=== PATIENT | female | born 1990 | race Caucasian/White ===

== ENCOUNTER 2019-02-13 19:32 | Inpatient (IN) | payer OTHER ==
[~2019-02-13 19:32] MED LIST: Lidocaine 1% PF 5 ML VIAL ONE; PROPOFOL 200 MG/20 ML VIAL ONE
[2019-02-13 20:11] LABS: Bilirubin Negative (Negative); Blood, Urine Large (Negative); Clarity Cloudy (Clear); Glucose, Urine (Dipstick) Negative (Negative); Leukocyte Small (Negative); Nitrite Negative (Negative); Protein, Urine (Dipstick) 100 mg/dL (Neg-Trace); Specific Gravity, Urine 1.025 (1.005-1.030); Urobilinogen 0.2 mg/dL (0.2-1.0); pH, Urine 5.5 (5.0-9.0)
[2019-02-13 20:13] LABS: #Basophils 0.1 thou/uL (0.0-0.2); #Eosinphils 0.1 thou/uL (0.0-0.7); #Lymphocytes 2.5 thou/uL (1.20-3.40); #Neutrophils 11.5 thou/uL (1.40-6.50); %Basophils 0.6 % (0.0-1.0); %Eosinophils 0.5 % (0.0-10.0); %Lymphocytes 16.6 % (21.0-51.0); %Monocytes 6.6 % (0.0-10.0); %Neutrophils 75.6 % (42.0-75.0); Hemoglobin 12.6 g/dL (12.0-16.0); Mean Corpuscular Hemoglobin 29.8 pg (27.0-31.0); Mean Corpuscular Volume 90.5 fL (78.0-98.0); Mean Platelet Volume 7.1 fL (7.4-10.4); Platelet Count 364 thou/uL (130-400); RBC Distribution Width 11.9 % (11.5-14.5); Red Blood Cell (RBC) Count 4.22 mill/uL (4.20-5.40); White Blood Cell (WBC) Count 15.2 thou/uL (4.8-10.8)
[2019-02-13 20:13] LABS: Pregnancy Test - Urine (BHCG) Negative (Negative); Pregu Control Background? CLEAR/WHITE (CLR/WHITE); Pregu Control Bar Appear? YES (CONTROL BAR); Specific Gravity 1.025 (1.002-1.036)
[2019-02-13 20:20] LABS: Bacteria/HPF 2+ HPF (None Seen); Crystals/HPF 3+ CA OXALATE HPF (Negative); Hyaline Casts/LPF NONE SEEN LPF (0-3 Hyaline); RBC/HPF GREATER THAN 50-TNTC HPF (0-3); WBC/HPF 21-50 HPF (0-3)
[2019-02-13 20:23] LABS: ALT (SGPT) 16 U/L (8-55); AST (SGOT) 18 U/L (5-34); Albumin 4.1 g/dL (3.5-5.0); Alkaline Phosphatase 116 U/L (40-150); Anion Gap 13 mmol/L (10-20); BUN (Urea Nitrogen) 19 mg/dL (7.0-18.7); Bilirubin, Total 0.4 mg/dL (0.2-1.2); Calc. Creatinine Clearance 0 mL/min (70-130); Calcium 9.8 mg/dL (7.8-10.44); Carbon Dioxide 26 mmol/L (22-29); Chloride 103 mmol/L (98-107); Estimated GFR-MDRD 51; Globulin 3.3 g/dL (2.4-3.5); Glucose 86 mg/dL (70-105); Lipase 7 U/L (8-78); Potassium 4.3 mmol/L (3.5-5.1); Protein, Total 7.4 g/dL (6.0-8.3); Sodium 138 mmol/L (136-145)
--- NOTE | 2019-02-13 20:48 | CT ---
CT Stone Protocol History: [Urinary frequency and pain] Comparison: None. Findings: Lung bases are clear. No pericardial effusion. Moderate left-sided hydroureteronephrosis du e to a 2 x 3 mm calculus at the left ureterovesicular junction, on the bladder side of the junction. No other left renal collecting system calculus is appreciated. There is a 3 x 3 mm calculus interpolar right kidney. No right-sided hydroureteronephrosis. No dilated loops of large small bowel. Small volume free fluid within the pelvis. The appendix is vis ualized and is normal. Skeleton is unremarkable. Liver, gallbladder, spleen are unremarkable. The aortoiliac contour is zonia neurysmal. Impression: 1. Left hydroureteronephrosis, moderate, due to a partially obstructing calculus left ureterovesicula r junction, on the bladder side of the junction, measuring 2 x 3 mm. 2. 3 x 3 mm calculus right interpolar renal collecting system. No right-sided hydroureteronephrosis.
[2019-02-13] MEDS ORDERED: Fentanyl 100 MCG/2 ML VIAL ONE ×3 (21:14→23:51)
[2019-02-13] MEDS ORDERED: cefTRIAXone\\ROCEPHIN 2 GM VIAL ONE (21:14)
[2019-02-13] MEDS ORDERED: Iothalamate Meglumine 60% 50 ML VIAL FS ONE (21:15)
[2019-02-13] MEDS ORDERED: Sodium Chloride 0.9% 100 ML ONE (21:15)
[2019-02-13] MEDS ORDERED: Meperidine HCl/PF 25 MG/ML VIAL SLOW IVP PRN (23:22)
[2019-02-13] MEDS ORDERED: HYDROmorphone 2 MG/ML VIAL SLOW IVP PRN (23:22)
[2019-02-13] MEDS ORDERED: Ondansetron HCl/PF 4 MG/2 ML Vial IVP PRN (23:22)
[2019-02-13] MEDS ORDERED: Promethazine HCl 25 MG/ML VIAL IM PRN (23:22)
[2019-02-13] MEDS ORDERED: Ketorolac Tromethamine 30 MG/ML VIAL IVP PRN (23:22)
[2019-02-13] MEDS ORDERED: Promethazine HCl 25 MG/ML VIAL SLOW IVP PRN (23:22)
--- NOTE | 2019-02-13 23:22 | RAD ---
XR IVP Retrograde History: [Stone] Comparison: CT abdomen and pelvis stone protocol same day Findings: Small filling defect is seen at the left ureterovesicular junction. Mild dilatation left ur eter and collecting system. On the final image a stent is in place. Impression: Fluoroscopy for surgical use.
[2019-02-13] MEDS ORDERED: Meperidine HCl/PF 25 MG/ML VIAL ONE (23:37)
[2019-02-13] MEDS ORDERED: Ondansetron PF 4 MG/2 ML Vial ONE (23:58)
[2019-02-14] MEDS ORDERED: Ondansetron PF 4 MG/2 ML Vial IVP PRN (01:21)
--- NOTE | 2019-02-14 01:33 | OP ---
DATE OF PROCEDURE: 02/13/2019 PREOPERATIVE DIAGNOSES: Left ureteral stone, left pyelonephritis. POSTOPERATIVE DIAGNOSES: Left ureteral stone, left pyelonephritis. PROCEDURE PERFORMED: Cysto, left stent. ANESTHETIC: General. ESTIMATED BLOOD LOSS: Minimal. DRAINS: 6 x 22 [place] with a string attached. FINDINGS: There is a distal left ureteral stone. We placed a wire, bite it and broke up into some pieces, some of which passed and a lot of debris passed behind it. When the procedure was done, still looked like a small stone fragment inside the intramural ureter, so I do not think she has completely passed the stone, but I do think she has passed some of it. She did have some left hydro. She did have some cloudy urine in the bladder. She did have some cloudy urine from the left kidney. DESCRIPTION OF PROCEDURE: After obtaining written and verbal consent from the patient after having received IV antibiotics with vancomycin and Rocephin and after having signed her consent forms and had all her questions answered, she was taken to the operating suite. She was placed in a supine position on the treatment table. PlexiPulses were placed on lower extremities and turned on. She was given a general anesthetic and oral obturator intubation. She was placed in the dorsal lithotomy position. She was sterilely prepped and draped. Cystoscopy was performed with a 22-Bruneian sheath. This was well lubricated. It was passed with a 30-degree lens through the urethra and into the urinary bladder with video camera and monitor. The bladder was filled and emptied number of times. A 0.038 guidewire was set up the left side and went by the stone. The stone fragmented into some pieces and debris came out from the left ureteral orifice. A 5-Bruneian [place] catheter was advanced over the guidewire. About 8 mL of contrast were placed to fill up the collecting system, which was mildly hydronephrotic. The guidewires were placed and an open-ended catheter was removed and the stent 6 x 23 was passed over the guidewire and pushed up to place a pusher, so its proximal end coiled in the renal pelvis and its distal end coiled in the bladder. The bladder was drained. The instruments were removed. The string was left attached to the stent and was cut shorter. She was taken out of the dorsal lithotomy position, awakened, extubated, and taken by stretcher to the recovery room. Keo ID: [id number]
--- NOTE | 2019-02-14 01:42 | CON ---
DATE OF CONSULTATION: 02/13/2019 HISTORY OF PRESENT ILLNESS: This is a 29-year-old white female, who five days ago began having left flank pain and some urinary frequency, urgency and dysuria. She started having some subjective chills and fever. She gets sick enough that she came into the emergency room today because of this. She was found to be tachycardic. She had no elevated temperature. She had a white count that was elevated at 15.2, hemoglobin was normal at 12.6, and her platelet count was normal at 364. She had a negative test. Her urinalysis showed many white cells, greater than 50 red cells, and 2+ bacteria. Her liver function tests were normal. Creatinine is 1.26. Her potassium is 4.3, chloride 103, and CO2 was 26. Blood and urine cultures done. She received Rocephin and vancomycin in the [facility]. Noncontrast CT scan was done. The CT scan showed small 3 mm left distal ureteral stone with left hydronephrosis and also a small right renal stone that did not appear to be causing any obstruction. PAST MEDICAL HISTORY: She has had one child. She has history of ovarian cysts. She has had tubes placed in her ears. She has ADHD and she has history of anxiety. ALLERGIES: SHE HAS AN ALLERGY TO PENICILLIN AND SHE HAS SOME REACTION TO MORPHINE, WHICH CAUSES HER TO BECOME ANGRY. SOCIAL HISTORY: She currently does not smoke, but has in the past. She does not drink alcohol. MEDICATIONS: She normally takes medicine for ADHD, which she cannot remember the name of. She takes meloxicam for some type of carpal tunnel in her right hand. She takes Lexapro for anxiety and depression. PHYSICAL EXAMINATION: She has some left CVA tenderness. Abdomen is soft and nontender. IMPRESSION: Urinary tract infection, probable left pyelonephritis and obstructing left distal ureteral stone. The plan is for cysto left stent placement. Discussed this with the patient, so she understands that procedure, will not be getting the stone out, but just relieving the obstruction to the kidney and letting the infection of the urine drain. She is a patient of Dr. Raina Zhang, who does not admit to the hospital and more so have the hospitalist see her and admit her. She may be kept on some antibiotics while here until the cultures return. Job ID: [id number]
[2019-02-14] MEDS: D5 1/2 NS w/20 mEq KCL 1,000 ML IV SCH ×3 (02:05→20:16)
[2019-02-14] MEDS: HYDROcodone/Acetaminophen 7.5/325 mg Tablet PO PRN ×4 (03:52→20:15)
[2019-02-14] MEDS ORDERED: Acetaminophen 325 MG TAB PO PRN (07:54)
[2019-02-14] MEDS ORDERED: Senokot S 8.6-50 MG TAB PO PRN (07:54)
[2019-02-14] MEDS ORDERED: Zolpidem Tartrate 5 MG TAB PO PRN (07:54)
[2019-02-14] MEDS ORDERED: Bisacodyl 10 MG SUPP PR PRN (07:54)
[2019-02-14] MEDS ORDERED: Loperamide HCl 2 MG CAP PO PRN (07:54)
[2019-02-14] MEDS ORDERED: Guaifenesin DM 100-10/5 ML UDCUP PO PRN (07:54)
[2019-02-14] MEDS ORDERED: Ondansetron ODT 4 MG TAB PO PRN (07:54)
[2019-02-14] MEDS ORDERED: Ketorolac Tromethamine 30 MG/ML VIAL IVP PRN (07:55)
[2019-02-14] MEDS ORDERED: ATOMOXETINE HCL 40 MG PO SCH (09:00)
[2019-02-14] MEDS ORDERED: Atomoxetine Hcl [Strattera] 40 MG PO SCH (09:00)
[2019-02-14] MEDS: Escitalopram Oxalate 20 mg Tablet PO SCH (09:21)
[2019-02-14] MEDS: Famotidine 20 MG TAB PO SCH ×2 (09:21→20:15)
[2019-02-14] MEDS: Vancomycin HCl 1 GM in Premix Bag 1 BAG IVPB SCH ×2 (09:22→23:03)
--- NOTE | 2019-02-14 11:18 | HP ---
PRIMARY CARE PHYSICIAN: [facility] Call admission. REASON FOR ADMISSION: Left hydroureteronephrosis, left ureteral calculi, urinary tract infection. HISTORY OF PRESENT ILLNESS: A 29-year-old female with no significant past medical history, who came to emergency room yesterday with complaint of left-sided flank pain associated with dysuria. She was also experiencing subjective fever and chills. Her pain intensity was about 6 x 10 in intensity, which was worse with movement. She was also feeling nausea, but no vomiting. She denies any high-grade fevers. She denies any constipation, diarrhea, melena, or hematochezia. She does report dysuria and hematuria. This type of problem she never had before. She denies any recent travel or sick exposure. She denies any flu-like illness. She denies any chest pain or palpitation. She denies any syncope, dizziness, weakness. REVIEW OF SYSTEMS: REVIEW OF SYSTEMS: CONSTITUTIONAL: Negative for weight loss or gain, ability to conduct usual activities. SKIN: Negative for rash, itching. EYES: Negative for double vision, pain. ENT/MOUTH: Negative for nose bleeding, neck stiffness, pain, tenderness. CARDIOVASCULAR: Negative for palpitations, dyspnea on exertion, orthopnea. RESPIRATORY: Negative for shortness of breath, wheezing, cough, hemoptysis, fever or night sweats. GASTROINTESTINAL: Negative for poor appetite, abdominal pain, heartburn, nausea, vomiting, constipation, or diarrhea. GENITOURINARY: Negative for urgency, frequency, dysuria, nocturia. MUSCULOSKELETAL: Negative for pain, swelling. NEUROLOGIC/PSYCHIATRIC: Negative for anxiety, depression. ALLERGY/IMMUNOLOGIC: Negative for skin rash, bleeding tendency. Please see my HPI for pertinent positives and negatives. All other review of systems reviewed and negative except as mentioned in HPI. PAST MEDICAL HISTORY: Ovarian cyst. PAST SURGICAL HISTORY: Myringotomy tube, tonsillectomy. PAST PSYCHIATRIC HISTORY: Anxiety and depression. SOCIAL HISTORY: The patient is a former smoker. She reports that she quit smoking two years ago. She lives at home with family. FAMILY HISTORY: No strong family history of premature coronary artery disease, stroke, or cancer. ALLERGIES: MORPHINE AND PENICILLIN. CURRENT HOME MEDICATION: 1. Lexapro 20 mg p.o. daily. 2. Mobic 15 mg p.o. daily p.r.n. EMERGENCY ROOM COURSE: The patient has received vancomycin, Rocephin, fentanyl 50 mcg, and IV fluid 2 L. PHYSICAL EXAMINATION: VITAL SIGNS: On arrival, blood pressure 109/72, pulse 81, respiratory rate 17, temperature 98.0, saturation 98% on room air. Weight 72.6 kg. GENERAL: The patient is currently alert, awake, no obvious acute distress. HEENT: Head; normocephalic, atraumatic. Eyes; pupils round, reactive to light. Extraocular muscles intact. ENT; oropharynx within normal limits. Moist mucous membranes. No oral lesion. No pharyngeal erythema. No exudate. NECK: Supple. No JVD. No thyromegaly. No carotid bruit. No jugular venous distention. LUNGS: Clear to auscultation without any rhonchi or rales. CARDIAC: S1, S2 regular. No murmur. No gallop. No rub. ABDOMEN: Soft, bowel sounds present. Nontender. Nondistended. No organomegaly. No mass. Mild suprapubic discomfort noted. BACK: Left-sided CVA tenderness noted. EXTREMITIES: Lower extremity, no edema. Good distal pulsation. SKIN: No skin rash. HEMATOLOGICAL: No lymphadenopathy. NEUROLOGIC: Nonfocal examination. The patient moves all 4 limbs. Plantar bilateral flexor. PSYCHIATRIC: Normal affect. SIGNIFICANT LABORATORY DATA: CT abdomen and pelvis done yesterday, which showed left hydroureteronephrosis, moderate, with partially obstructing calculus left ureterovesical junction, 2 x 3 mm calculus right interpolar renal collecting system without hydronephrosis. CBC; WBC 15.2, hemoglobin 12.6, platelet 364. BMP; sodium 138, potassium 4.3, chloride 103, carbon dioxide 26, BUN 19, creatinine 1.26, glucose 86, calcium 9.8. LFT: AST 18, ALT 16, alkaline phosphatase 116, albumin 4.1. Urinalysis consistent with urinary tract infection. ASSESSMENT AND PLAN: 1. Acute ureteric colic with left-sided hydroureteronephrosis with urinary tract infection. The patient has complicated urinary tract infection. The patient already evaluated by Urology, and the patient already had a stent placed. At this point, the patient is getting antibiotics and IV fluid. We will monitor on culture result. We will continue with Rocephin and vancomycin for now as well as IV fluid and her pain will be controlled with Toradol p.r.n. basis. 2. Urinary tract infection with acute kidney injury secondary to sepsis with acute organ dysfunction. The patient's creatinine has been improving and the patient will be given IV fluid and we will repeat BMP tomorrow. The patient will be on broad-spectrum antibiotic therapy and will follow up on urine culture results. 3. Anxiety and depression. We will continue atomoxetine 40 mg p.o. daily and Lexapro 20 mg p.o. daily. 4. Deep venous thrombosis prophylaxis, SCD boots. 5. Gastrointestinal prophylaxis, Pepcid 20 mg p.o. b.i.d. CODE STATUS: The patient is full code. The patient does not have any surrogate decision maker. DISPOSITION PLAN: Based on clinical course, we are expecting the patient's stay in hospital 24 to 48 hours. Plan of care discussed with the patient in detail. Job ID: [id number]
[2019-02-14] MEDS: cefTRIAXone\\ROCEPHIN 1 GM in Sodium Chloride 0.9% 100 ML IVPB SCH (21:38)
[2019-02-15] MEDS: D5 1/2 NS w/20 mEq KCL 1,000 ML IV SCH (06:05)
[2019-02-15 06:46] LABS: #Eosinphils 0.2 thou/uL (0.0-0.7); #Lymphocytes 2.4 thou/uL (1.20-3.40); #Monocytes 0.7 thou/uL (0.11-0.59); #Neutrophils 5.7 thou/uL (1.40-6.50); %Basophils 0.5 % (0.0-1.0); %Eosinophils 2.3 % (0.0-10.0); %Lymphocytes 26.4 % (21.0-51.0); %Monocytes 7.6 % (0.0-10.0); %Neutrophils 63.2 % (42.0-75.0); Mean Corpuscular HGB CONC 33.6 g/dL (32.0-36.0); Mean Corpuscular Hemoglobin 31.1 pg (27.0-31.0); Mean Corpuscular Volume 92.4 fL (78.0-98.0); Mean Platelet Volume 7.4 fL (7.4-10.4); Platelet Count 293 thou/uL (130-400); RBC Distribution Width 11.3 % (11.5-14.5); Red Blood Cell (RBC) Count 3.54 mill/uL (4.20-5.40)
[2019-02-15 07:05] LABS: Anion Gap 11 mmol/L (10-20); BUN (Urea Nitrogen) 6 mg/dL (7.0-18.7); Calc. Creatinine Clearance 123 mL/min (70-130); Calcium 8.7 mg/dL (7.8-10.44); Carbon Dioxide 21 mmol/L (22-29); Chloride 110 mmol/L (98-107); Estimated GFR-MDRD Greater than 90; Glucose 99 mg/dL (70-105); Potassium 4.3 mmol/L (3.5-5.1); Sodium 138 mmol/L (136-145)
[2019-02-15] MEDS: HYDROcodone/Acetaminophen 7.5/325 mg Tablet PO PRN ×2 (09:41→20:23)
[2019-02-15] MEDS: Vancomycin HCl 1 GM in Premix Bag 1 BAG IVPB SCH ×2 (09:41→22:41)
[2019-02-15] MEDS: Escitalopram Oxalate 20 mg Tablet PO SCH (09:42)
[2019-02-15] MEDS: Famotidine 20 MG TAB PO SCH ×2 (09:42→20:23)
--- NOTE | 2019-02-15 11:41 | PDOC.PN ---
- Subjective Encounter Start Date: 02/15/19 Encounter Start Time: 07:50 -: old records requested/rev pt still has lower abdominal and left flank pain, no fever - Objective Resuscitation Status - Order Detail: 02/14/19 07:54 Resuscitation Status Routine Resuscitation Status: FULL: Full Resuscitation MAR Reviewed: Yes Vital Signs & Weight: Vital Signs (12 hours) Temp Pulse Resp BP BP Pulse Ox 02/15/19 08:00 98.4 F 67 20 101/56 L 98 02/15/19 06:05 98.7 F 79 16 100/51 L 02/14/19 23:50 97.8 F 65 18 111/65 Weight Weight 150 lb I&O: 02/14/19 02/15/19 02/16/19 06:59 06:59 06:59 Intake Total 925 1611 Output Total 475 650 Balance 450 961 Result Diagrams: 02/15/19 06:34 02/15/19 06:34 Phys Exam - Physical Examination Constitutional: NAD HEENT: PERRLA, moist MMs, sclera anicteric Neck: no JVD, supple Respiratory: no wheezing, no rales, no rhonchi Cardiovascular: RRR, no significant murmur, no rub Gastrointestinal: soft, no distention, positive bowel sounds suprapubic tenderness, left cva tenderness Musculoskeletal: no edema, pulses present Neurological: non-focal, normal sensation, moves all 4 limbs Lymphatic: no nodes Psychiatric: normal affect, A&O x 3 Skin: no rash, normal turgor Dx/Plan (1) NICOLE (acute kidney injury) Code(s): N17.9 - ACUTE KIDNEY FAILURE, UNSPECIFIED Status: Acute (2) Hydroureteronephrosis Code(s): N13.30 - UNSPECIFIED HYDRONEPHROSIS Status: Acute (3) Left ureteral calculus Code(s): N20.1 - CALCULUS OF URETER Status: Acute (4) UTI (urinary tract infection) Status: Acute (5) Anemia, normocytic normochromic Code(s): D64.9 - ANEMIA, UNSPECIFIED Status: Chronic - Plan cont current plan of care, continue antibiotics * DC IVF * continue pain control * continue current IV antibiotics * medication reviewed as below * symptomatic treatment. Review of Systems - Review of Systems Eyes: negative: Pain, Vision Change, Conjunctivae Inflammation, Eyelid Inflammation, Redness, Other ENT: negative: Ear Pain, Ear Discharge, Nose Pain, Nose Discharge, Nose Congestion, Mouth Pain, Mouth Swelling, Throat Pain, Throat Swelling, Other Respiratory: negative: Cough, Dry, Shortness of Breath, Hemoptysis, SOB with Excertion, Pleuritic Pain, Sputum, Wheezing Cardiovascular: negative: chest pain, palpitations, orthopnea, paroxysmal nocturnal dyspnea, edema, light headedness, other Gastrointestinal: Abdominal Pain. negative: Nausea, Vomiting, Diarrhea, Constipation, Melena, Hematochezia, Other Genitourinary: Dysuria. negative: Frequency, Incontinence, Hematuria, Retention , Other Musculoskeletal: negative: Neck Pain, Shoulder Pain, Arm Pain, Back Pain, Hand Pain, Leg Pain, Foot Pain, Other - Medications/Allergies Allergies/Adverse Reactions: Allergies Allergy/AdvReac Type Severity Reaction Status Date / Time codeine Allergy Verified 02/14/19 01:23 morphine Allergy Verified 02/14/19 01:23 Penicillins Allergy Verified 09/16/16 01:01 Medications: Current Medications Acetaminophen (Tylenol) 650 mg PO Q4H PRN PRN Reason: Headache/Fever/Mild Pain (1-3) Hydrocodone Bitart/Acetaminophen ([place] 7.5/325) 1 tab PO Q4H PRN PRN Reason: Mild Pain (1-3) Last Admin: 02/15/19 09:41 Dose: 1 tab Bisacodyl (Dulcolax) 10 mg [place] DAILYPRN PRN PRN Reason: Constipation Escitalopram Oxalate (Lexapro) 20 mg PO DAILY [facility] Last Admin: 02/15/19 09:42 Dose: 20 mg Famotidine (Pepcid) 20 mg PO BID [facility] Last Admin: 02/15/19 09:42 Dose: 20 mg Guaifenesin/Dextromethorphan (Robitussin Dm) 15 ml PO Q4H PRN PRN Reason: Cough Potassium Chloride/Dextrose/Sod Cl (D5 1/2 Ns W/20 Meq Kcl) 1,000 mls @ 125 mls /hr IV .Q8H [facility] Last Admin: 02/15/19 06:05 Dose: 1,000 mls Vancomycin HCl 1 gm/ Device 200 mls @ 200 mls/hr IVPB 1000,2200 [facility] Last Admin: 02/15/19 09:41 Dose: 200 mls Ceftriaxone Sodium 1 gm/ (Sodium Chloride) 100 mls @ 200 mls/hr IVPB Q24HR [facility] Last Admin: 02/14/19 21:38 Dose: 100 mls Ketorolac Tromethamine (Toradol) 15 mg IVP Q6H PRN PRN Reason: Pain Stop: 02/19/19 07:56 Last Admin: 02/14/19 09:29 Dose: 15 mg Loperamide HCl (Imodium) 2 mg PO PRN PRN PRN Reason: Diarrhea/Loose Stools Ondansetron HCl (Zofran) 4 mg IVP Q6H PRN PRN Reason: Nausea/Vomiting Ondansetron HCl (Zofran Odt) 4 mg PO Q6H PRN PRN Reason: Nausea/Vomiting Atomoxetine Hcl [ (Strattera] 40 Mg) 0 each PO QAM [facility] Senna/Docusate Sodium (Senokot S) 2 tab PO BID PRN PRN Reason: Constipation Sodium Chloride (Flush - Normal Saline) 10 ml IVF Q12HR [facility] Last Admin: 02/15/19 08:53 Dose: Not Given Sodium Chloride (Flush - Normal Saline) 10 ml IVF PRN PRN PRN Reason: Saline Flush Last Admin: 02/15/19 06:09 Dose: 10 ml Zolpidem Tartrate (Ambien) 5 mg PO HSPRN PRN PRN Reason: Insomnia
[2019-02-15 21:34] LABS: Vancomycin, Trough 12.8 ug/mL
[2019-02-15] MEDS: cefTRIAXone\\ROCEPHIN 1 GM in Sodium Chloride 0.9% 100 ML IVPB SCH (21:43)
[2019-02-16 08:21] VITALS: BP 92/54; TEMP 99.1
[2019-02-16] MEDS: Famotidine 20 MG TAB PO SCH (08:57)
[2019-02-16] MEDS: Escitalopram Oxalate 20 mg Tablet PO SCH (08:57)
--- NOTE | 2019-02-16 10:08 | PDOC.PN ---
- Subjective Encounter Start Date: 02/16/19 Encounter Start Time: 07:40 Patient seen and examined. No new complaints. No overnight events - Objective Resuscitation Status - Order Detail: 02/14/19 07:54 Resuscitation Status Routine Resuscitation Status: FULL: Full Resuscitation MAR Reviewed: Yes Vital Signs & Weight: Vital Signs (12 hours) Temp Pulse Resp BP BP BP Pulse Ox 02/16/19 08:00 99.1 F 80 20 92/54 L 98 02/16/19 06:10 98.5 F 72 16 94/56 L 02/16/19 00:40 98.1 F 64 16 97/56 L Weight Weight 150 lb I&O: 02/15/19 02/16/19 02/17/19 06:59 06:59 06:59 Intake Total 1611 300 Output Total 650 1800 Balance 961 -1500 Result Diagrams: 02/15/19 06:34 02/15/19 06:34 Phys Exam - Physical Examination Constitutional: NAD HEENT: PERRLA, moist MMs, sclera anicteric Neck: no JVD, supple Respiratory: no wheezing, no rales, no rhonchi Cardiovascular: RRR, no significant murmur, no rub Gastrointestinal: soft, non-tender, no distention, positive bowel sounds Musculoskeletal: no edema, pulses present Neurological: non-focal, normal sensation, moves all 4 limbs Lymphatic: no nodes Psychiatric: normal affect, A&O x 3 Skin: no rash, normal turgor Dx/Plan (1) NICOLE (acute kidney injury) Code(s): N17.9 - ACUTE KIDNEY FAILURE, UNSPECIFIED Status: Acute (2) Hydroureteronephrosis Code(s): N13.30 - UNSPECIFIED HYDRONEPHROSIS Status: Acute (3) Left ureteral calculus Code(s): N20.1 - CALCULUS OF URETER Status: Acute (4) UTI (urinary tract infection) Status: Acute (5) Anemia, normocytic normochromic Code(s): D64.9 - ANEMIA, UNSPECIFIED Status: Chronic - Plan cont current plan of care, continue antibiotics * medication reviewed as below * symptomatic treatment * cipro on discharge. Review of Systems - Review of Systems ENT: negative: Ear Pain, Ear Discharge, Nose Pain, Nose Discharge, Nose Congestion, Mouth Pain, Mouth Swelling, Throat Pain, Throat Swelling, Other Respiratory: negative: Cough, Dry, Shortness of Breath, Hemoptysis, SOB with Excertion, Pleuritic Pain, Sputum, Wheezing Cardiovascular: negative: chest pain, palpitations, orthopnea, paroxysmal nocturnal dyspnea, edema, light headedness, other Gastrointestinal: negative: Nausea, Vomiting, Abdominal Pain, Diarrhea, Constipation, Melena, Hematochezia, Other Genitourinary: negative: Dysuria, Frequency, Incontinence, Hematuria, Retention , Other Musculoskeletal: negative: Neck Pain, Shoulder Pain, Arm Pain, Back Pain, Hand Pain, Leg Pain, Foot Pain, Other Skin: negative: Rash, Lesions, Michele, Bruising, Other - Medications/Allergies Allergies/Adverse Reactions: Allergies Allergy/AdvReac Type Severity Reaction Status Date / Time codeine Allergy Verified 02/14/19 01:23 morphine Allergy Verified 02/14/19 01:23 Penicillins Allergy Verified 09/16/16 01:01 Medications: Current Medications Acetaminophen (Tylenol) 650 mg PO Q4H PRN PRN Reason: Headache/Fever/Mild Pain (1-3) Hydrocodone Bitart/Acetaminophen ([place] 7.5/325) 1 tab PO Q4H PRN PRN Reason: Mild Pain (1-3) Last Admin: 02/15/19 20:23 Dose: 1 tab Bisacodyl (Dulcolax) [address] DAILYPRN PRN PRN Reason: Constipation Escitalopram Oxalate (Lexapro) 20 mg PO DAILY [facility] Last Admin: 02/16/19 08:57 Dose: 20 mg Famotidine (Pepcid) 20 mg PO BID [facility] Last Admin: 02/16/19 08:57 Dose: 20 mg Guaifenesin/Dextromethorphan (Robitussin Dm) 15 ml PO Q4H PRN PRN Reason: Cough Vancomycin HCl 1 gm/ Device 200 mls @ 200 mls/hr IVPB 1000,2200 [facility] Last Admin: 02/15/19 22:41 Dose: 200 mls Ceftriaxone Sodium 1 gm/ (Sodium Chloride) 100 mls @ 200 mls/hr IVPB Q24HR [facility] Last Admin: 02/15/19 21:43 Dose: 100 mls Ketorolac Tromethamine (Toradol) 15 mg IVP Q6H PRN PRN Reason: Pain Stop: 02/19/19 07:56 Last Admin: 02/14/19 09:29 Dose: 15 mg Loperamide HCl (Imodium) 2 mg PO PRN PRN PRN Reason: Diarrhea/Loose Stools Ondansetron HCl (Zofran) 4 mg IVP Q6H PRN PRN Reason: Nausea/Vomiting Ondansetron HCl (Zofran Odt) 4 mg PO Q6H PRN PRN Reason: Nausea/Vomiting Atomoxetine Hcl [ (Strattera] 40 Mg) 0 each PO QAM [facility] Senna/Docusate Sodium (Senokot S) 2 tab PO BID PRN PRN Reason: Constipation Sodium Chloride (Flush - Normal Saline) 10 ml IVF Q12HR [facility] Last Admin: 02/15/19 21:47 Dose: 10 ml Sodium Chloride (Flush - Normal Saline) 10 ml IVF PRN PRN PRN Reason: Saline Flush Last Admin: 02/16/19 00:39 Dose: 10 ml Zolpidem Tartrate (Ambien) 5 mg PO HSPRN PRN PRN Reason: Insomnia
[2019-02-16] MEDS: Vancomycin HCl 1 GM in Premix Bag 1 BAG IVPB SCH (10:10)
--- NOTE | 2019-02-16 10:11 | DIS ---
DATE OF ADMISSION: 02/13/2019 DATE OF DISCHARGE: 02/16/2019 PRIMARY CARE PHYSICIAN: Dr. Raina Zhang. DISCHARGE DISPOSITION: Home. PRIMARY DISCHARGE DIAGNOSES: 1. Urinary tract infection due to left ureteral calculus. 2. Hydroureteronephrosis due to left ureteral calculus. 3. Acute kidney injury, improved. SECONDARY DISCHARGE DIAGNOSIS: Normocytic normochromic anemia. PRIMARY PROCEDURE/OPERATION: Dr. Wallis did a cystoscopy and a left-sided ureteral stent placement. RADIOLOGICAL INVESTIGATION: Abdomen and pelvis CT scan showed left-sided hydroureteronephrosis, ureteropelvic junction stone, retrograde pyelogram. SIGNIFICANT LABORATORY DATA: Hemoglobin 11.0. Creatinine 0.74. LFT normal. Urinalysis suggestive of UTI. Urine culture and blood culture negative. DISCHARGE MEDICATIONS: 1. Ciprofloxacin 500 mg p.o. b.i.d. for 7 days. 2. Atorvastatin 40 mg p.o. daily. 3. Lexapro 20 mg daily. 4. Mobic 15 mg p.o. daily p.r.n. 5. Cipro 500 mg p.o. b.i.d. for 7 days. CONTRAINDICATION: None. CODE STATUS: Full code. 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 Wallis was following while in hospital. TEST RESULT PENDING ON DISCHARGE: None. ALLERGIES: CODEINE, MORPHINE, PENICILLIN. DISCHARGE PLAN: Posthospital, the patient will follow up with Dr. Wallis as instructed. HOSPITAL COURSE: A 29-year-old female with above-mentioned medical problem, who was admitted to the hospital for acute onset of left-sided pain. She was having left-sided flank pain as well as left-sided suprapubic pain. The patient was admitted by me. Please see my H and P for further details. Dr. Wallis already did a cystoscopy and left-sided stent placement. After that, the patient's pain was much better. She was treated empirically while in the hospital with Rocephin and vancomycin. Her cultures remain negative. On discharge, we changed to ciprofloxacin. Rest of medications she will continue as per previous. Overall, the patient is medically stable for discharge. Job ID: [id number]
== END 2019-02-16 12:12 | disposition home or self-care (01) | DRG 854 ==
LOC: SCSER 19:32 → SDC/OP 22:20 → 3SE 23:59
PROVIDERS: ADMIT Internal Medicine; ATTEND Internal Medicine
PROC: 0T778DZ Dilation of Left Ureter with Intraluminal Device, Via Natural or Artificial Opening Endoscopic (ICD-10-PCS; principal; 2019-02-13)
DX: A41.9 Sepsis, unspecified organism (principal); N10 Acute pyelonephritis; N17.9 Acute kidney failure, unspecified; R65.20 Severe sepsis without septic shock; F90.9 Attention-deficit hyperactivity disorder, unspecified type; F41.9 Anxiety disorder, unspecified; N83.209 Unspecified ovarian cyst, unspecified side; F32.9 Major depressive disorder, single episode, unspecified; N21.1 Calculus in urethra; D64.9 Anemia, unspecified; Z88.0 Allergy status to penicillin; Z88.5 Allergy status to narcotic agent; Z79.899 Other long term (current) drug therapy
CPT/HCPCS: 36415; 74176; 74420; 80048; 80053; 80202; 81003; 81015; 81025; 83690; 85025; 87040; 87086; 96361; 96365; 96375; C1758; J0696; J1885; J2001; J2175; J2270; J2405; J2704; J3010; J3370; J3490; Q9961

== ENCOUNTER 2019-02-18 22:25 | Emergency (ER) | payer OTHER ==
[2019-02-18 23:16] LABS: #Basophils 0.1 thou/uL (0.0-0.2); #Eosinphils 0.3 thou/uL (0.0-0.7); #Lymphocytes 3.4 thou/uL (1.20-3.40); #Monocytes 0.7 thou/uL (0.11-0.59); #Neutrophils 11.4 thou/uL (1.40-6.50); %Basophils 0.7 % (0.0-1.0); %Eosinophils 2.2 % (0.0-10.0); %Lymphocytes 21.3 % (21.0-51.0); %Monocytes 4.3 % (0.0-10.0); %Neutrophils 71.6 % (42.0-75.0); Hemoglobin 13.1 g/dL (12.0-16.0); Mean Corpuscular HGB CONC 34.1 g/dL (32.0-36.0); Mean Corpuscular Hemoglobin 30.2 pg (27.0-31.0); Mean Corpuscular Volume 88.6 fL (78.0-98.0); Mean Platelet Volume 7.4 fL (7.4-10.4); Platelet Count 444 thou/uL (130-400); RBC Distribution Width 11.7 % (11.5-14.5); Red Blood Cell (RBC) Count 4.32 mill/uL (4.20-5.40); White Blood Cell (WBC) Count 15.9 thou/uL (4.8-10.8)
[2019-02-18 23:29] LABS: ALT (SGPT) 23 U/L (8-55); AST (SGOT) 20 U/L (5-34); Albumin 4.4 g/dL (3.5-5.0); Alkaline Phosphatase 122 U/L (40-150); Anion Gap 15 mmol/L (10-20); BUN (Urea Nitrogen) 10 mg/dL (7.0-18.7); Bilirubin, Total 0.4 mg/dL (0.2-1.2); Calc. Creatinine Clearance 0 mL/min (70-130); Calcium 9.8 mg/dL (7.8-10.44); Carbon Dioxide 25 mmol/L (22-29); Chloride 103 mmol/L (98-107); Estimated GFR-MDRD 85; Globulin 3.6 g/dL (2.4-3.5); Glucose 100 mg/dL (70-105); Potassium 3.8 mmol/L (3.5-5.1); Sodium 139 mmol/L (136-145)
[2019-02-18 23:29] LABS: Bilirubin Small (Negative); Blood, Urine Large (Negative); Clarity Cloudy (Clear); Glucose, Urine (Dipstick) Negative (Negative); Leukocyte Small (Negative); Nitrite Negative (Negative); Protein, Urine (Dipstick) > or equal to 300 mg/dL (Neg-Trace); Urobilinogen 0.2 mg/dL (0.2-1.0); pH, Urine 5.5 (5.0-9.0)
[2019-02-18 23:31] LABS: Specific Gravity, Urine 1.019 (1.002-1.036)
[2019-02-18 23:32] LABS: Pregnancy Test - Urine (BHCG) Negative (Negative); Pregu Control Background? CLEAR/WHITE (CLR/WHITE); Pregu Control Bar Appear? YES (CONTROL BAR); Specific Gravity 1.019 (1.002-1.036)
[2019-02-18] MEDS ORDERED: Ondansetron PF 4 MG/2 ML Vial ONE (23:34)
[2019-02-18] MEDS ORDERED: Ketorolac Tromethamine 30 MG/ML VIAL ONE (23:34)
--- NOTE | 2019-02-18 23:37 | CT ---
Exam: Abdomen CT without contrast Pelvic CT without contrast COMPARISON: 02/13/2019 HISTORY: Left-sided hydroureter process and hydroureter. Left ureteral stent placement. Pain. Hematur ia. FINDINGS: Abdomen CT: Lung bases are clear Unremarkable heart and aorta Limited evaluation of the solid organs technique. No solid organ abnormality No gastrohepatic, retrocrural or periportal lymphadenopathy No mesenteric mass, lymphadenopathy, free air or free fluid Unremarkable gallbladder Limited evaluation of the alimentary canal. No evidence of bowel obstruction. Ileocecal junction is n ormal. Caliber appendix. Scattered fecal material in a nondistended, nondilated colon Redemonstration of nonobstructing 1 mm calculi in the right renal pelvis. No right sided obstructive uropathy. Interval placement of a double J left ureteral stent. Proximal pigtail is in the left renal pelvis. Distal pigtails in the left bladder. When compared to the previous examination, the int rarenal collecting system has decompressed. Previously noted calculus in the left ureter, the level of the ureterovesicular junction, is no longer demonstrated. CT PELVIS: Decompressed urinary bladder, limits evaluation. Uterus and adnexal structures are unremarkable. Stable small free fluid pelvis No lytic or blastic lesions osseous structures IMPRESSION: 1. Interval placement of a left-sided double-J ureteral stent. 2. Interval decompression of the left intrarenal collecting system. 3. Previously noted calculus in the left ureterovesical junction is not appreciated.
[2019-02-18 23:41] LABS: RBC/HPF GREATER THAN 50-TNTC HPF (0-3)
[2019-02-18 23:43] LABS: WBC/HPF 21-50 HPF (0-3)
[2019-02-18 23:44] LABS: Bacteria/HPF 1+ HPF (None Seen); Crystals/HPF 4+ AMORPH URATES HPF (Negative); Hyaline Casts/LPF NONE SEEN LPF (0-3 Hyaline)
== END 2019-02-19 00:18 | disposition home or self-care (01) ==
LOC: SCSER 22:25
DX: R31.9 Hematuria, unspecified (principal); F41.9 Anxiety disorder, unspecified; Z79.899 Other long term (current) drug therapy; Z87.891 Personal history of nicotine dependence
CPT/HCPCS: 74176; 80053; 81003; 81015; 81025; 85025; 96374; 96375; J1885; J2405

== ENCOUNTER 2021-02-23 14:51 | Emergency (ER) | payer OTHER | END 2021-02-23 15:45 | disposition home or self-care (01) | LOC: ERS 14:51 | DX: S62.625A Displaced fracture of middle phalanx of left ring finger, initial encounter for closed fracture (principal); F17.290 Nicotine dependence, other tobacco product, uncomplicated; X58.XXXA Exposure to other specified factors, initial encounter ==

== ENCOUNTER 2021-03-31 08:04 | Outpatient (CLI) | payer OTHER ==
[2021-03-31] MEDS ORDERED: Magnevist 469MG/ML 20 ML VIAL ONE (09:31)
== END 2021-03-31 08:05 | disposition home or self-care (01) ==
LOC: BICMRI 08:04
PROVIDERS: ATTEND Psychiatry & Neurology Neurology
DX: R56.9 Unspecified convulsions (principal)
CPT/HCPCS: 70553; A9579

== ENCOUNTER 2023-09-20 13:34 | Outpatient (CLI) | payer OTHER | END 2023-09-20 13:35 | disposition home or self-care (01) | LOC: BICRAD 13:34 | PROVIDERS: ATTEND Physician Assistant | DX: R07.89 Other chest pain (principal) | CPT/HCPCS: 71046 ==